=== PATIENT | male | born 1955 | race Caucasian/White ===

== ENCOUNTER 2021-03-29 02:01 | Emergency (ER) | payer OTHER ==
[2021-03-29 03:03] LABS: Hemoglobin 11.5 g/dL (13.5-17.5); Mean Corpuscular HGB CONC 32.4 g/dL (32.0-36.0); Mean Corpuscular Hemoglobin 27.6 pg (27.0-33.0); Mean Corpuscular Volume 85.1 fl (81.2-95.1); Mean Platelet Volume 11.7 fl (7.4-10.4); Platelet Count 211 10x3/uL (150-450); RBC Distribution Width 15.8 % (11.5-14.5); Red Blood Cell (RBC) Count 4.17 10x6/uL (4.32-5.72); White Blood Cell (WBC) Count 3.8 10x3/uL (3.5-10.5)
[2021-03-29 03:11] LABS: ALT (SGPT) 13 U/L (8-55); AST (SGOT) 24 U/L (5-34); Albumin 2.9 g/dL (3.4-4.8); Alkaline Phosphatase 66 U/L (40-110); Anion Gap 11 mmol/L (10-20); BUN (Urea Nitrogen) 15 mg/dL (8.4-25.7); Bilirubin, Total 0.4 mg/dL (0.2-1.2); Calc. Creatinine Clearance 0 mL/min (70-130); Calcium 8.2 mg/dL (7.8-10.44); Carbon Dioxide 26 mmol/L (23-31); Chloride 103 mmol/L (98-107); Globulin 4.4 g/dL (2.4-3.5); Glucose 97 mg/dL (80-115); Potassium 3.1 mmol/L (3.5-5.1); Protein, Total 7.3 g/dL (5.8-8.1); Sodium 137 mmol/L (136-145)
[2021-03-29] MEDS ORDERED: Lidocaine 1% (PF) 30 ML VIAL ONE (03:30)
[2021-03-29 03:37] LABS: Band 7 % (5-11); Eosinophils 1 % (0-10); Lymphocytes 29 % (21-51); Monocytes 17 % (0-10); Neutrophil 46 % (42-75)
[2021-03-29] MEDS ORDERED: Potassium Chloride 20 MEQ TAB ONE (03:37)
[2021-03-29 03:42] LABS: Large Platelets MODERATE; Platelet Morphology Comment Appears Adequate
[2021-03-29 03:43] LABS: MDiff Complete? YES; RBC Morphology Normal
[2021-03-29] MEDS ORDERED: Ketorolac Tromethamine 30 MG/ML VIAL ONE (03:54)
== END 2021-03-29 03:57 ==
LOC: CSHERS 02:01
DX: L02.611 Cutaneous abscess of right foot (principal); E87.6 Hypokalemia; I11.0 Hypertensive heart disease with heart failure; I50.9 Heart failure, unspecified; I25.10 Atherosclerotic heart disease of native coronary artery without angina pectoris; E78.5 Hyperlipidemia, unspecified; J44.9 Chronic obstructive pulmonary disease, unspecified; M35.00 Sjogren syndrome, unspecified; G47.33 Obstructive sleep apnea (adult) (pediatric); Z79.82 Long term (current) use of aspirin; Z79.899 Other long term (current) drug therapy
CPT/HCPCS: 10060; 80053; 85025; 87070; 87077; 87186; 87205; 93005; 96372; J1885; J2001

== ENCOUNTER 2023-05-13 10:53 | Inpatient (IN) | payer OTHER ==
[2023-05-13 11:20] LABS: Hemoglobin 17.6 g/dL (13.5-17.5); Mean Corpuscular HGB CONC 33.2 g/dL (32.0-36.0); Mean Corpuscular Hemoglobin 28.1 pg (27.0-33.0); Mean Corpuscular Volume 84.5 fl (81.2-95.1); Mean Platelet Volume 11.6 fl (7.4-10.4); Platelet Count 202 10x3/uL (150-450); RBC Distribution Width 16.6 % (11.5-14.5); Red Blood Cell (RBC) Count 6.27 10x6/uL (4.32-5.72)
[2023-05-13 11:29] LABS: MDiff Complete? YES
[2023-05-13 11:38] LABS: ALT (SGPT) 24 U/L (8-55); AST (SGOT) 48 U/L (5-34); Albumin 3.2 g/dL (3.4-4.8); Alkaline Phosphatase 64 U/L (40-110); Anion Gap 18 mmol/L (10-20); BUN (Urea Nitrogen) 31 mg/dL (8.4-25.7); Calc. Creatinine Clearance 0 mL/min (70-130); Calcium 8.2 mg/dL (7.8-10.44); Carbon Dioxide 20 mmol/L (23-31); Chloride 101 mmol/L (98-107); Estimated GFR 27; Globulin 4.2 g/dL (2.4-3.5); Glucose 121 mg/dL (80-115); Potassium 3.5 mmol/L (3.5-5.1); Protein, Total 7.4 g/dL (5.8-8.1); Sodium 135 mmol/L (136-145)
[2023-05-13 11:40] LABS: Troponin I 0.199 ng/mL (< 0.028)
[2023-05-13] MEDS ORDERED: Piperacillin/Tazobactam 4.5 GM VIAL ONE (11:48)
[2023-05-13 11:49] LABS: Actual Bicarbonate (HCO3v) 21.1 mEq/L (22-28); Analyzer IN Cardio CS ER; Base Excess -3.2 mEq/L (-2 - +2); Calcium, Ionized (venous) 1.07 mmol/L (1.16-1.32); Chloride (VBG) 99 mmol/L (98-106); Hematocrit-VBG 54 % (42.0-52.0); Hemoglobin (Hb) 18.3 g/dL (12.6-17.4); Potassium (VBG) 3.36 mmol/L (3.70-5.30); Puncture Site Other Site; RapidComm Collect By lab; Sodium 134 mmol/L (133-146); pH (venous) 7.381 (7.32-7.43)
[2023-05-13 11:52] LABS: Platelet Adequacy Comment Appears Adequate
[2023-05-13 11:59] LABS: Band 2 % (5-11); Eosinophils 2 % (0-10); Lymphocytes 2 % (21-51); Monocytes 10 % (0-10); Neutrophil 83 % (42-75); Reactive Lymphocytes 1 % (0-10)
[2023-05-13 12:07] LABS: Giant Platelets SLIGHT HPF (0-5); RBC Morph Comment Within Normal Limits
[2023-05-13 12:26] LABS: SARS-CoV-2 NAA Rapid Test Not Detected (NotDetected)
[2023-05-13] MEDS ORDERED: Loperamide HCl 2 MG CAP ONE (12:53)
[2023-05-13] MEDS: Azithromycin 500 MG in Sodium Chloride 0.9% 250 ML 250 ML IVPB SCH (15:36)
[2023-05-13] MEDS: Gabapentin 300 MG CAP PO SCH (15:45)
[2023-05-13] MEDS: Carvedilol 25 MG TAB PO SCH (16:31)
[2023-05-13] MEDS: cefTRIAXone\\ROCEPHIN 1 GM in Sodium Chloride 0.9% 100 ML IVPB SCH (17:20)
[2023-05-13] MEDS: Oseltamivir 75 MG CAP PO SCH (20:52)
[2023-05-13] MEDS: Terazosin HCl 1 MG CAP PO SCH (20:52)
[2023-05-14] MEDS ORDERED: VANCOMYCIN 1.75 GM/350 ML BAG 1.75 GM in Premix 1 BAG IVPB SCH (05:00)
[2023-05-14] MEDS: Loratadine 10 MG TAB PO SCH (08:03)
[2023-05-14] MEDS: Isosorbide Mononitrate 30 MG ER.TAB PO SCH (08:03)
[2023-05-14] MEDS: Famotidine 20 MG TAB PO SCH (08:03)
[2023-05-14] MEDS: Aspirin 81 mg Enteric Coated Tablet PO SCH (08:03)
[2023-05-14] MEDS: Enoxaparin 40 MG (0.4 mL) SYRINGE SC SCH (08:04)
[2023-05-14] MEDS: DULoxetine 30 MG CAP PO SCH (08:04)
[2023-05-14 08:56] LABS: Troponin I 0.116 ng/mL (< 0.028)
[2023-05-14 09:00] LABS: Hematocrit 49.1 % (38.8-50.0); Hemoglobin 16.1 g/dL (13.5-17.5); Mean Corpuscular HGB CONC 32.8 g/dL (32.0-36.0); Mean Corpuscular Hemoglobin 27.8 pg (27.0-33.0); Mean Corpuscular Volume 84.8 fl (81.2-95.1); Mean Platelet Volume 12.4 fl (7.4-10.4); Platelet Count 177 10x3/uL (150-450); RBC Distribution Width 16.5 % (11.5-14.5); Red Blood Cell (RBC) Count 5.79 10x6/uL (4.32-5.72); White Blood Cell (WBC) Count 25.2 10x3/uL (3.5-10.5)
[2023-05-14 09:12] LABS: ALT (SGPT) 30 U/L (8-55); AST (SGOT) 49 U/L (5-34); Alkaline Phosphatase 70 U/L (40-110); Anion Gap 16 mmol/L (10-20); BUN (Urea Nitrogen) 53 mg/dL (8.4-25.7); Bilirubin, Total 0.9 mg/dL (0.2-1.2); Calc. Creatinine Clearance 54 mL/min (70-130); Calcium 8.4 mg/dL (7.8-10.44); Carbon Dioxide 22 mmol/L (23-31); Chloride 101 mmol/L (98-107); Estimated GFR 23; Globulin 4.2 g/dL (2.4-3.5); Glucose 92 mg/dL (80-115); Potassium 3.5 mmol/L (3.5-5.1); Protein, Total 7.2 g/dL (5.8-8.1); Sodium 135 mmol/L (136-145)
[2023-05-14 09:29] LABS: MDiff Complete? YES; Platelet Adequacy Comment Appears Adequate
[2023-05-14 09:34] LABS: Band 1 % (5-11); Lymphocytes 3 % (21-51); Monocytes 3 % (0-10); Neutrophil 93 % (42-75)
[2023-05-14 09:35] LABS: RBC Morph Comment Within Normal Limits; Vacuoles SLIGHT
[2023-05-14] MEDS: Sodium Chloride 0.9% 500 ML IV SCH ×2 (12:18→13:54)
[2023-05-14] MEDS: Acetaminophen 325 MG TAB PO PRN (12:45)
[2023-05-14] MEDS: Ipratropium/Albuterol 3 ML NEB NEB SCH (13:00)
[2023-05-14] MEDS: Albumin 25% 25 GM (100 mL) BOT IVPB SCH (13:54)
[2023-05-14] MEDS: Gabapentin 300 MG CAP PO SCH (13:54)
[2023-05-14] MEDS ORDERED: Vancomycin Dose by Levels Sliding Scale (Wt > 99) FS SCH (16:15)
[2023-05-14] MEDS: VANCOMYCIN 1.75 GM/350 ML BAG 1.75 GM in Premix 1 BAG IVPB SCH (17:22)
[2023-05-14] MEDS: Carvedilol 12.5 MG TAB PO SCH (17:23)
[2023-05-14] MEDS ORDERED: NOREPINEPHRINE 8 MG/250 ML-D5W 250 ML IVPB SCH (17:30)
[2023-05-14 18:00] LABS: Anion Gap 13 mmol/L (10-20); BUN (Urea Nitrogen) 62 mg/dL (8.4-25.7); Calc. Creatinine Clearance 53 mL/min (70-130); Calcium 7.9 mg/dL (7.8-10.44); Carbon Dioxide 26 mmol/L (23-31); Chloride 102 mmol/L (98-107); Estimated GFR 22; Glucose 107 mg/dL (80-115); Magnesium 2.2 mg/dL (1.6-2.6); Potassium 3.6 mmol/L (3.5-5.1); Sodium 137 mmol/L (136-145)
[2023-05-14 19:18] LABS: Analyzer IN Cardio CS ER; Base Excess -1.3 mEq/L (-2 - +2); Calcium, Ionized (venous) 1.03 mmol/L (1.16-1.32); Chloride (VBG) 100 mmol/L (98-106); Critical Notified By: CP.PH; Hematocrit-VBG 45 % (42.0-52.0); Hemoglobin (Hb) 15.3 g/dL (12.6-17.4); Potassium (VBG) 3.46 mmol/L (3.70-5.30); Puncture Site Other Site; RapidComm Collect By LAB.ER; Sodium 135 mmol/L (133-146); pH (venous) 7.304 (7.32-7.43)
[2023-05-14] MEDS: Mometasone/Formoterol 60 PUFF AER INH SCH (19:25)
[2023-05-14] MEDS: Oseltamivir 6 MG/ML ORAL SUSP PO SCH (19:43)
[2023-05-14] MEDS: Cefepime 1 GM in Sodium Chloride 0.9% 100 ML IVPB SCH (21:03)
[2023-05-14] MEDS: Hydrocortisone Sod Succ/PF 100 mg/2 ml Vial IVP SCH (21:05)
[2023-05-14] MEDS: Sodium Chloride 0.9% 1,000 ML IV SCH (23:00)
[2023-05-15 09:09] LABS: #Basophils 0.1 10x3/uL (0.0-0.2); #Eosinphils 0.1 10x3/uL (0.0-0.5); #Monocytes 0.8 10x3/uL (0.0-1.1); #Neutrophils 17.6 10x3/uL (1.5-8.4); %Basophils 0.3 % (0.0-2.0); %Eosinophils 0.3 % (0.0-6.0); %Lymphocytes 1.9 % (18.0-47.0); %Monocytes 4.3 % (0.0-10.0); %Neutrophils 92.8 % (40.0-75.0); Hematocrit 42.9 % (38.8-50.0); Hemoglobin 14.1 g/dL (13.5-17.5); Mean Corpuscular HGB CONC 32.9 g/dL (32.0-36.0); Mean Corpuscular Hemoglobin 27.8 pg (27.0-33.0); Mean Corpuscular Volume 84.6 fl (81.2-95.1); Mean Platelet Volume 12.3 fl (7.4-10.4); Platelet Count 165 10x3/uL (150-450); RBC Distribution Width 16.1 % (11.5-14.5); Red Blood Cell (RBC) Count 5.07 10x6/uL (4.32-5.72); White Blood Cell (WBC) Count 18.9 10x3/uL (3.5-10.5)
[2023-05-15 09:49] LABS: ALT (SGPT) 36 U/L (8-55); AST (SGOT) 35 U/L (5-34); Albumin 3.3 g/dL (3.4-4.8); Alkaline Phosphatase 57 U/L (40-110); Anion Gap 17 mmol/L (10-20); BUN (Urea Nitrogen) 65 mg/dL (8.4-25.7); Calc. Creatinine Clearance 57 mL/min (70-130); Calcium 8.3 mg/dL (7.8-10.44); Carbon Dioxide 23 mmol/L (23-31); Chloride 99 mmol/L (98-107); Estimated GFR 24; Globulin 3.5 g/dL (2.4-3.5); Glucose 132 mg/dL (80-115); Potassium 3.6 mmol/L (3.5-5.1); Protein, Total 6.8 g/dL (5.8-8.1); Sodium 135 mmol/L (136-145)
[2023-05-15 13:42] LABS: Actual Bicarbonate (HCO3a) 26.5 mEq/L (22-28); Analyzer IN Cardio CS ICU; Base Excess (BEa) -0.8 mEq/L (-2.0 to +3.0); CO2 Tension 54.3 mmHg (35.0-45.0); Calcium, Ionized (arterial) 1.14 mmol/L (1.12-1.30); Hematocrit-ABG 42 % (42.0-52.0); Hemoglobin (Hb) 14.2 g/dL (14.0-18.0); O2 Tension (PaO2), arterial 55.6 mmHg (> 80.0); Potassium - ABG Lab 3.63 mmol/L (3.70-5.30); Puncture Site RRA; pH, Arterial 7.306 (7.35-7.45)
[2023-05-15 13:47] LABS: ALV-art Gradient 233.025 mmHg (0-20)
[2023-05-15 15:18] LABS: Vancomycin, Random 10.6 ug/mL (See Comment)
[2023-05-15] MEDS ORDERED: Vancomycin Dose by Levels Sliding Scale (Wt > 99) FS SCH (16:15)
[2023-05-15] MEDS: Vancomycin 1 GM in Sodium Chloride 0.9% 250 ML 250 ML IVPB SCH (16:31)
[2023-05-15] MEDS: Ipratropium/Albuterol 3 ML NEB NEB PRN (21:40)
[2023-05-16 06:49] LABS: #Monocytes 0.9 10x3/uL (0.0-1.1); #Neutrophils 15.9 10x3/uL (1.5-8.4); %Basophils 0.2 % (0.0-2.0); %Eosinophils 0.1 % (0.0-6.0); %Lymphocytes 2.2 % (18.0-47.0); %Monocytes 5.4 % (0.0-10.0); %Neutrophils 91.4 % (40.0-75.0); Hematocrit 42.2 % (38.8-50.0); Hemoglobin 13.8 g/dL (13.5-17.5); Mean Corpuscular HGB CONC 32.7 g/dL (32.0-36.0); Mean Corpuscular Hemoglobin 27.5 pg (27.0-33.0); Mean Corpuscular Volume 84.2 fl (81.2-95.1); Mean Platelet Volume 13.1 fl (7.4-10.4); Platelet Count 170 10x3/uL (150-450); Red Blood Cell (RBC) Count 5.01 10x6/uL (4.32-5.72); White Blood Cell (WBC) Count 17.4 10x3/uL (3.5-10.5)
[2023-05-16 06:59] LABS: Anion Gap 16 mmol/L (10-20); BUN (Urea Nitrogen) 56 mg/dL (8.4-25.7); Calc. Creatinine Clearance 79 mL/min (70-130); Calcium 8.5 mg/dL (7.8-10.44); Carbon Dioxide 24 mmol/L (23-31); Chloride 102 mmol/L (98-107); Estimated GFR 35; Glucose 129 mg/dL (80-115); Potassium 3.5 mmol/L (3.5-5.1); Sodium 138 mmol/L (136-145)
[2023-05-16] MEDS: Gabapentin 300 MG CAP PO SCH (09:12)
[2023-05-16 12:48] LABS: Vancomycin, Random 4.4 ug/mL (See Comment)
[2023-05-16] MEDS: VANCOMYCIN 1.75 GM/350 ML BAG 1.75 GM in Premix 1 BAG IVPB SCH (13:09)
[2023-05-16] MEDS: Famotidine 20 MG TAB PO SCH (20:57)
[2023-05-16] MEDS: Enoxaparin 80 MG (0.8 mL) SYRINGE SC SCH (20:57)
[2023-05-17 05:21] LABS: #Monocytes 0.9 10x3/uL (0.0-1.1); #Neutrophils 10.8 10x3/uL (1.5-8.4); %Basophils 0.2 % (0.0-2.0); %Eosinophils 0.1 % (0.0-6.0); %Lymphocytes 3.3 % (18.0-47.0); %Monocytes 7.4 % (0.0-10.0); %Neutrophils 88.2 % (40.0-75.0); Hematocrit 43.3 % (38.8-50.0); Hemoglobin 14.2 g/dL (13.5-17.5); Mean Corpuscular HGB CONC 32.8 g/dL (32.0-36.0); Mean Corpuscular Hemoglobin 27.8 pg (27.0-33.0); Mean Corpuscular Volume 84.7 fl (81.2-95.1); Mean Platelet Volume 12.2 fl (7.4-10.4); Platelet Count 205 10x3/uL (150-450); Red Blood Cell (RBC) Count 5.11 10x6/uL (4.32-5.72); White Blood Cell (WBC) Count 12.3 10x3/uL (3.5-10.5)
[2023-05-17 06:01] LABS: Anion Gap 11 mmol/L (10-20); BUN (Urea Nitrogen) 52 mg/dL (8.4-25.7); Calc. Creatinine Clearance 104 mL/min (70-130); Calcium 8.4 mg/dL (7.8-10.44); Carbon Dioxide 29 mmol/L (23-31); Chloride 103 mmol/L (98-107); Estimated GFR 49; Glucose 138 mg/dL (80-115); Potassium 3.8 mmol/L (3.5-5.1); Sodium 139 mmol/L (136-145)
[2023-05-17] MEDS: Vancomycin 1 GM in Premix 1 BAG IVPB SCH (07:57)
[2023-05-17] MEDS: Cefepime 2 GM in Sodium Chloride 0.9% 100 ML IVPB SCH (09:17)
[2023-05-17] MEDS: Oseltamivir 75 MG CAP PO SCH (09:31)
[2023-05-17] MEDS: Hydrocortisone Sod Succ/PF 100 mg/2 ml Vial IVP SCH (14:25)
[2023-05-17] MEDS: Enoxaparin 40 MG (0.4 mL) SYRINGE SC SCH (20:17)
[2023-05-18 03:58] LABS: #Neutrophils 9.2 10x3/uL (1.5-8.4); %Basophils 0.2 % (0.0-2.0); %Eosinophils 0.2 % (0.0-6.0); %Lymphocytes 4.1 % (18.0-47.0); %Monocytes 9.4 % (0.0-10.0); %Neutrophils 84.9 % (40.0-75.0); Hematocrit 44.4 % (38.8-50.0); Hemoglobin 14.2 g/dL (13.5-17.5); Mean Corpuscular Hemoglobin 27.1 pg (27.0-33.0); Mean Corpuscular Volume 84.7 fl (81.2-95.1); Mean Platelet Volume 11.8 fl (7.4-10.4); Platelet Count 259 10x3/uL (150-450); RBC Distribution Width 15.9 % (11.5-14.5); Red Blood Cell (RBC) Count 5.24 10x6/uL (4.32-5.72); White Blood Cell (WBC) Count 10.9 10x3/uL (3.5-10.5)
[2023-05-18 04:09] LABS: Anion Gap 14 mmol/L (10-20); BUN (Urea Nitrogen) 49 mg/dL (8.4-25.7); Calc. Creatinine Clearance 122 mL/min (70-130); Calcium 8.5 mg/dL (7.8-10.44); Carbon Dioxide 27 mmol/L (23-31); Chloride 104 mmol/L (98-107); Estimated GFR 60; Glucose 134 mg/dL (80-115); Potassium 4.2 mmol/L (3.5-5.1); Sodium 141 mmol/L (136-145)
[2023-05-18 12:09] LABS: Vancomycin, Trough 16.2 ug/mL
[2023-05-18] MEDS: Meclizine HCl 25 MG TAB PO SCH (21:21)
[2023-05-18 23:11] LABS: Legionella Urinary Ag Negative (Negative)
[2023-05-18 23:12] LABS: Strep pneumo Urine Ag NEGATIVE (NEGATIVE)
[2023-05-19] MEDS: methylPREDNISolone Sod Succ/PF 125 MG/2 ML VIAL IVP SCH (09:07)
[2023-05-19] MEDS: Docusate 100 MG CAP PO SCH (12:10)
[2023-05-19] MEDS: Polyethylene Glycol 3350 17 GM Packet PO SCH (12:10)
[2023-05-19] MEDS: Vancomycin 1.5 GRAM/300 ML BAG 1.5 GM in Premix 1 BAG IVPB SCH (12:11)
[2023-05-19] MEDS: Meclizine HCl 12.5 MG TAB PO PRN (20:29)
[2023-05-20] MEDS: Docusate 100 MG CAP PO SCH (07:45)
[2023-05-20] MEDS: Polyethylene Glycol 3350 17 GM Packet PO SCH (07:46)
[2023-05-20 11:14] LABS: Hematocrit 48.3 % (38.8-50.0); Hemoglobin 16.1 g/dL (13.5-17.5); Mean Corpuscular HGB CONC 33.3 g/dL (32.0-36.0); Mean Corpuscular Volume 83.9 fl (81.2-95.1); Mean Platelet Volume 11.4 fl (7.4-10.4); Platelet Count 351 10x3/uL (150-450); RBC Distribution Width 16.3 % (11.5-14.5); Red Blood Cell (RBC) Count 5.76 10x6/uL (4.32-5.72); White Blood Cell (WBC) Count 12.5 10x3/uL (3.5-10.5)
[2023-05-20 11:15] LABS: MDiff Complete? YES; Platelet Adequacy Comment Appears Adequate
[2023-05-20 11:29] LABS: Vancomycin, Trough 15.9 ug/mL
[2023-05-20 11:31] LABS: ALT (SGPT) 28 U/L (8-55); AST (SGOT) 17 U/L (5-34); Albumin 2.8 g/dL (3.4-4.8); Alkaline Phosphatase 51 U/L (40-110); Anion Gap 12 mmol/L (10-20); BUN (Urea Nitrogen) 36 mg/dL (8.4-25.7); Bilirubin, Total 0.5 mg/dL (0.2-1.2); Calc. Creatinine Clearance 140 mL/min (70-130); Calcium 8.3 mg/dL (7.8-10.44); Carbon Dioxide 27 mmol/L (23-31); Chloride 105 mmol/L (98-107); Estimated GFR 68; Globulin 3.5 g/dL (2.4-3.5); Glucose 153 mg/dL (80-115); Potassium 4.6 mmol/L (3.5-5.1); Protein, Total 6.3 g/dL (5.8-8.1); Sodium 139 mmol/L (136-145)
[2023-05-20 11:41] LABS: Band 1 % (5-11); Lymphocytes 4 % (21-51); Monocytes 5 % (0-10); Neutrophil 90 % (42-75)
[2023-05-20 11:43] LABS: Toxic Granulation SLIGHT
[2023-05-20 11:49] LABS: Anisocytosis SLIGHT = 6-15 cells (100X) (0-5/hpf)
[2023-05-20] MEDS: Bisacodyl 10 MG SUPP PR SCH (14:02)
[2023-05-21] MEDS: Furosemide 40 MG (4 mL) VIAL SLOW IVP SCH (10:27)
[2023-05-21 16:02] VITALS: TEMP 98.5
[2023-05-21 22:14] VITALS: BMI 48.4
[2023-05-22 03:41] LABS: Hematocrit 49.7 % (38.8-50.0); Hemoglobin 16.3 g/dL (13.5-17.5); Mean Corpuscular HGB CONC 32.8 g/dL (32.0-36.0); Mean Corpuscular Hemoglobin 27.4 pg (27.0-33.0); Mean Corpuscular Volume 83.5 fl (81.2-95.1); Mean Platelet Volume 11.7 fl (7.4-10.4); Platelet Count 382 10x3/uL (150-450); RBC Distribution Width 17.2 % (11.5-14.5); Red Blood Cell (RBC) Count 5.95 10x6/uL (4.32-5.72); White Blood Cell (WBC) Count 15.5 10x3/uL (3.5-10.5)
[2023-05-22 04:22] LABS: Anion Gap 12 mmol/L (10-20); BUN (Urea Nitrogen) 47 mg/dL (8.4-25.7); Calc. Creatinine Clearance 137 mL/min (70-130); Calcium 8.3 mg/dL (7.8-10.44); Carbon Dioxide 29 mmol/L (23-31); Chloride 103 mmol/L (98-107); Estimated GFR 64; Glucose 135 mg/dL (80-115); Magnesium 2.1 mg/dL (1.6-2.6); Sodium 139 mmol/L (136-145)
[2023-05-22] MEDS: Furosemide 40 MG (4 mL) VIAL SLOW IVP SCH (11:03)
[2023-05-22] MEDS: Lactulose 20 GM (30 mL) UDCUP PO PRN (14:02)
[2023-05-22] MEDS: Mag-Al 1200 mg/1200 mg/30 ML UDCUP PO PRN (14:10)
[2023-05-22] MEDS: Nystatin 500,000 UNITS/5 ML UDCUP SSW SCH (16:58)
[2023-05-23] MEDS: Ondansetron PF 4 MG/2 ML Vial IVP SCH (01:41)
[2023-05-23] MEDS: Ondansetron PF 4 MG/2 ML Vial ONE (01:41)
[2023-05-23] MEDS: Metoclopramide HCl 10 MG (2 mL) VIAL IVP SCH (01:43)
[2023-05-23] MEDS: Mineral Oil ENEMA PR SCH (01:44)
[2023-05-23 03:47] LABS: #Neutrophils 16.6 10x3/uL (1.5-8.4); %Basophils 0.2 % (0.0-2.0); %Lymphocytes 4.1 % (18.0-47.0); %Monocytes 5.5 % (0.0-10.0); %Neutrophils 88.5 % (40.0-75.0); Anion Gap 18 mmol/L (10-20); BUN (Urea Nitrogen) 63 mg/dL (8.4-25.7); Calc. Creatinine Clearance 93 mL/min (70-130); Calcium 8.2 mg/dL (7.8-10.44); Carbon Dioxide 23 mmol/L (23-31); Chloride 101 mmol/L (98-107); Estimated GFR 40; Glucose 256 mg/dL (80-115); Hematocrit 47.4 % (38.8-50.0); Hemoglobin 15.6 g/dL (13.5-17.5); Mean Corpuscular HGB CONC 32.9 g/dL (32.0-36.0); Mean Corpuscular Hemoglobin 27.6 pg (27.0-33.0); Mean Corpuscular Volume 83.7 fl (81.2-95.1); Mean Platelet Volume 11.7 fl (7.4-10.4); Platelet Count 493 10x3/uL (150-450); RBC Distribution Width 17.1 % (11.5-14.5); Red Blood Cell (RBC) Count 5.66 10x6/uL (4.32-5.72); Sodium 136 mmol/L (136-145); White Blood Cell (WBC) Count 18.7 10x3/uL (3.5-10.5)
[2023-05-23 03:53] LABS: Potassium 6.4 mmol/L (3.5-5.1)
[2023-05-23 03:54] LABS: Troponin I 0.012 ng/mL (< 0.028)
[2023-05-23] MEDS: NOREPINEPHRINE 8 MG/250 ML-D5W 250 ML ONE ×2 (03:55→04:19)
[2023-05-23 05:11] LABS: #Basophils 0.1 10x3/uL (0.0-0.2); #Monocytes 1.6 10x3/uL (0.0-1.1); #Neutrophils 18.4 10x3/uL (1.5-8.4); %Basophils 0.3 % (0.0-2.0); %Lymphocytes 4.2 % (18.0-47.0); %Monocytes 7.2 % (0.0-10.0); %Neutrophils 84.6 % (40.0-75.0); Hematocrit 47.3 % (38.8-50.0); Hemoglobin 15.1 g/dL (13.5-17.5); Mean Corpuscular HGB CONC 31.9 g/dL (32.0-36.0); Mean Corpuscular Hemoglobin 27.4 pg (27.0-33.0); Mean Corpuscular Volume 85.8 fl (81.2-95.1); Mean Platelet Volume 11.6 fl (7.4-10.4); Platelet Count 503 10x3/uL (150-450); RBC Distribution Width 17.2 % (11.5-14.5); Red Blood Cell (RBC) Count 5.51 10x6/uL (4.32-5.72); White Blood Cell (WBC) Count 21.8 10x3/uL (3.5-10.5)
[2023-05-23] MEDS ORDERED: Meropenem 1 GM in Sodium Chloride 0.9% 100 ML IVPB SCH ×2 (05:15→13:00)
[2023-05-23] MEDS ORDERED: VANCOMYCIN 2 GRAM/400 ML BAG IVPB SCH (05:15)
[2023-05-23 05:16] LABS: Anion Gap 20 mmol/L (10-20); BUN (Urea Nitrogen) 67 mg/dL (8.4-25.7); Calc. Creatinine Clearance 79 mL/min (70-130); Calcium 8.1 mg/dL (7.8-10.44); Carbon Dioxide 25 mmol/L (23-31); Chloride 100 mmol/L (98-107); Estimated GFR 33; Glucose 222 mg/dL (80-115); Magnesium 2.6 mg/dL (1.6-2.6); Sodium 138 mmol/L (136-145)
[2023-05-23 05:18] LABS: Potassium 6.9 mmol/L (3.5-5.1)
[2023-05-23] MEDS: Piperacillin/Tazobactam 3.375 GM in Sodium Chloride 0.9% 100 ML IVPB SCH (05:20)
[2023-05-23 05:30] LABS: Critical Call Chem-Lactate ZNA @0530
[2023-05-23] MEDS: Insulin Regular 300 UNITS/3 ML VIAL IVP SCH (05:30)
[2023-05-23] MEDS ORDERED: VANCOMYCIN 2 GRAM/400 ML BAG 2 GM in Premix 1 BAG IVPB SCH (05:30)
[2023-05-23] MEDS ORDERED: Albuterol 2.5 MG (3 mL) NEB NEB SCH (05:30)
[2023-05-23] MEDS: Vasopressin 20 UNITS, Admixture Fee 1 EACH in Sodium Chloride 0.9% 50 ML IV SCH (05:30)
[2023-05-23] MEDS: Dextrose 50% Abboject 50 ML SYRINGE SLOW IVP PRN (05:35)
[2023-05-23] MEDS: Sodium Chloride 0.9% 1,000 ML IV SCH (05:35)
[2023-05-23] MEDS: CALCIUM GLUC 1 GM/NS 50 ML 1 GM in Premix 1 BAG IVPB SCH (05:37)
[2023-05-23] MEDS ORDERED: Pantoprazole 40 MG VIAL IVP SCH (06:00)
[2023-05-23] MEDS ORDERED: Piperacillin/Tazobactam 4.5 GM in Sodium Chloride 0.9% 100 ML IVPB SCH (06:00)
[2023-05-23] MEDS ORDERED: Sodium Chloride 0.9% 1,000 ML IV SCH (06:00)
[2023-05-23] MEDS ORDERED: Sodium Bicarb 50 MEQ/50 ML Abboject 8.4% SYRINGE ONE (09:00)
[2023-05-23] MEDS ORDERED: EPINEPHrine 1 MG/10 ML Abboject SYRINGE ONE (09:00)
[2023-05-23] MEDS ORDERED: Piperacillin/Tazobactam 3.375 GM in Sodium Chloride 0.9% 100 ML IVPB SCH (09:00)
[2023-05-23] MEDS ORDERED: Dextrose 50% Abboject 50 ML SYRINGE ONE (09:00)
[2023-05-23 09:05] VITALS: BP 93/62
[2023-05-23] MEDS ORDERED: MD-Gastroview 120 ML BOT ONE (10:49)
== END 2023-05-23 11:42 | disposition expired | DRG 871 ==
LOC: CSHERS 10:53 → EEVIPCON 10:53 → CSHIMCU 11:50
PROVIDERS: ADMIT Internal Medicine; ATTEND Internal Medicine
PROC: 3E03329 Introduction of Other Anti-infective into Peripheral Vein, Percutaneous Approach (ICD-10-PCS; 2023-05-13)
PROC: 5A09457 Assistance with Respiratory Ventilation, 24-96 Consecutive Hours, Continuous Positive Airway Pressure (ICD-10-PCS; 2023-05-13)
PROC: 02HV33Z Insertion of Infusion Device into Superior Vena Cava, Percutaneous Approach (ICD-10-PCS; principal; 2023-05-14)
PROC: B548ZZA Ultrasonography of Superior Vena Cava, Guidance (ICD-10-PCS; 2023-05-14)
PROC: 3E033XZ Introduction of Vasopressor into Peripheral Vein, Percutaneous Approach (ICD-10-PCS; 2023-05-14)
PROC: 30233J1 Transfusion of Nonautologous Serum Albumin into Peripheral Vein, Percutaneous Approach (ICD-10-PCS; 2023-05-14)
PROC: 5A0945A Assistance with Respiratory Ventilation, 24-96 Consecutive Hours, High Flow/Velocity Cannula (ICD-10-PCS; 2023-05-15)
PROC: 4A033R1 Measurement of Arterial Saturation, Peripheral, Percutaneous Approach (ICD-10-PCS; 2023-05-15)
PROC: 02HV33Z Insertion of Infusion Device into Superior Vena Cava, Percutaneous Approach (ICD-10-PCS; 2023-05-23)
PROC: B548ZZA Ultrasonography of Superior Vena Cava, Guidance (ICD-10-PCS; 2023-05-23)
PROC: 5A1935Z Respiratory Ventilation, Less than 24 Consecutive Hours (ICD-10-PCS; 2023-05-23)
PROC: 0BH17EZ Insertion of Endotracheal Airway into Trachea, Via Natural or Artificial Opening (ICD-10-PCS; 2023-05-23)
DX: A41.9 Sepsis, unspecified organism (principal); I50.43 Acute on chronic combined systolic (congestive) and diastolic (congestive) heart failure; J96.21 Acute and chronic respiratory failure with hypoxia; R65.21 Severe sepsis with septic shock; J10.00 Influenza due to other identified influenza virus with unspecified type of pneumonia; N17.9 Acute kidney failure, unspecified; N18.4 Chronic kidney disease, stage 4 (severe); J44.0 Chronic obstructive pulmonary disease with (acute) lower respiratory infection; I48.92 Unspecified atrial flutter; Z68.42 Body mass index [BMI] 45.0-49.9, adult; K56.7 Ileus, unspecified; E66.2 Morbid (severe) obesity with alveolar hypoventilation; J44.1 Chronic obstructive pulmonary disease with (acute) exacerbation; I25.10 Atherosclerotic heart disease of native coronary artery without angina pectoris; I11.0 Hypertensive heart disease with heart failure; E78.5 Hyperlipidemia, unspecified; G47.33 Obstructive sleep apnea (adult) (pediatric); M35.00 Sjogren syndrome, unspecified; K21.9 Gastro-esophageal reflux disease without esophagitis; I46.8 Cardiac arrest due to other underlying condition; K59.00 Constipation, unspecified; Z87.891 Personal history of nicotine dependence; Z88.2 Allergy status to sulfonamides; Z90.49 Acquired absence of other specified parts of digestive tract; Z11.52 Encounter for screening for COVID-19
CPT/HCPCS: 36415; 36416; 36600; 71045; 74018; 74177; 80048; 80053; 80202; 82805; 83605; 83735; 83880; 84100; 84145; 84484; 85025; 85027; 87040; 87077; 87081; 87449; 87899; 93005; 93010; 93306; 94640; 94660; 94667; 94668; 94669; 94760; 94762; 96374; J0171; J0456; J0613; J0692; J0696; J1650; J1720; J1815; J1940; J2405; J2543; J2765; J2930; J3370; J3490; J7030; J7050; J7620; J7999; P9047; Q9963